=== PATIENT | female | born 1990 | race Caucasian/White ===

== ENCOUNTER 2025-01-04 15:23 | Emergency (ER) | payer MEDICAID, SELFPAY ==
[2025-01-04 15:24] VITALS: BP 153/108; PULSE 85; RESP 18; TEMP 36.8; O2SAT 99; BMI 47.9
--- NOTE | 2025-01-04 15:32 | ED.RN ---
PT WAS SEEN AT [facility] PAST FRIDAY FOR RIGHT EAR, GAVE EAR DROPS. NOW LEFT EAR HURTS WELL, PT SAID GETTING WORSE. PT TEARFUL IN EXAM ROOM.
--- NOTE | 2025-01-04 16:03 | EDS_ITS ---
HPI HPI - URI History of Present Illness Chief Complaint: Ear Problem Informant: patient Onset/Context/Timing Onset: Days Context: Gradual Onset Timing: Continuous Current Severity: Moderate Maximum Severity: Moderate Narrative Narrative: 34-year-old female has had bilateral ear pain for about 8 days. She saw the [facility] urgent care across the street they placed her on some type of eardrops she has been just getting worse. Now she has more pain and trouble hearing. Denies sore throat. Denies fever. She has had a prior polyp removed from one of her ears from a doctor in [place]. Prior similar symptoms: No Recent Illness/Hospitalization: No ROS ROS ED ROS Narrative Bilateral ear pain. Constitutional Constitutional ED: Denies chills or fever(s) Eyes Eyes: Denies blurry vision ENT ENT ED: Reports ear pain Cardiovascular Cardiovascular: Denies chest pain Respiratory/Chest Respiratory/Chest: Denies cough Gastrointestinal Gastrointestinal: Denies abdominal pain Genitourinary Genitourinary ED: Denies dysuria Musculoskeletal Musculoskeletal: Denies arthralgias Integumentary Denies abscess Neurologic Neurologic: Denies headache(s) Psychiatric Psychiatric: Denies anxiety Endocrine Endocrinology: Denies cold intolerance Hematologic/Lymphatic Hematologic/Lymphatic: Denies easy bleeding, easy bruising or lymphadenopathy Allergic/Immunologic Allergic/Immunologic ED: Denies mouth swelling, tongue swelling or urticaria PFSH [facility] Medical History Pre-diabetes Asthma FHx: cholecystectomy Home Medications ?Medication ?Instructions ?Recorded ?Last Taken ?Type albuterol 90 mcg/actuation aerosol mcg inhalation PRN 01/04/25 Unknown History inhaler amlodipine 10 mg tablet (Norvasc) 10 mg PO DAILY 01/0401/03/25 History amoxicillin 500 mg capsule 500 mg PO TID 10 days #30 c aps 01/04/25 Unknown Rx budesonide-formoterol HFA 80 2 inh inhalation BID 02/21 Unknown History mcg-4.5 mcg/actuation aerosol inhaler (Breyna) dupilumab 300 mg/2 mL subcutaneous 300 mg subcut QWEEK 01/04/25 12/28/24 History pen injector (Dupixent) montelukast 10 mg tablet 10 mg PO DAILY 01/04/25 Unkn own History (Singulair) Allergy/AdvReac Type Severity Reaction Status Date / Time cefdinir (From Omnicef) Allergy Severe HIVES Verified 01/04/25 15:32 sulfamethoxazole (From Allergy Severe HIVES Verified 01/04/25 15:32 Bactrim) trimethoprim (From Bactrim) Allergy Severe HIVES Verified 01/04/25 15:32 Surgical History H/O: hysterectomy Hx of tonsillectomy Social History Smoking Status: Former smoker EXAM Physical Exam Narrative Exam Narrative: Well-appearing 34-year-old female. Vital signs stable afebrile. H EENT exam pupils round react to light. Posterior pharynx normal. Ears both ear canals are swollen and red. They are open but there almost closed. The part of the different members I can see appear to be red with fluid behind them. The external ears unremarkable. There is no mastoid tenderness or lymphadenopathy. Neck nontender no lymphadenopathy. Lungs clear to auscultation. Heart regular rhythm no murmur rate about 85. Chest wall ribs nontender. Abdomen soft nontender. Moving all 4 extremities. Awake and alert. Answering questions following commands. Const Vital Signs: 01/04/25 15:24 Temperature 98.3 F Temperature Source Oral Pulse Rate 85 Respiratory Rate 18 Blood Pressure 153/108 H Blood Pressure Mean 123 Pulse Ox 99 Oxygen Delivery Method Room Air Positive well developed; Negative for cachectic or contractures General Appearance ED: well developed and NAD; Negative for cachectic, contractures, cyanotic, diaphoretic or pallor Nutritional Appearance: Negative for cachectic HEENT Reports moist mucous membranes HEENT Narrative: Bilateral otitis externa with red eardrums with fluid behind them. Ear brian were placed in both ears. Discharged to home on otic drops and amoxicillin 500 3 times daily for 10 days. Follow-up with ENT if not improving. normocephalic and atraumatic Throat: posterior oropharynx normal Eyes PERRL and EOMs intact bilaterally Neck no lymphadenopathy, supple, no meningeal signs and no JVD General: Negative for anterior neck swelling or lymphadenopathy Resp normal respiratory effort and clear to auscultation bilaterally Cardio S1 normal heart sound, S2 normal heart sound and no murmurs Rate: regular rate Rhythm: regular rhythm GI non-tender, non-distended and no masses Inspection: Negative for abdominal distention Auscultation: normoactive bowel sounds Palpation: soft; Negative for tender, guarding or mass Back/Spine no CVA tenderness and normal ROM Extremity normal to inspection and full ROM Neuro oriented x3 and CN's II-XII intact bilaterally Sensorium / Orientation: alert, oriented to person, oriented to place and oriented to time Motor Exam: strength 5/5 throughout Psych mental status grossly normal Attitude: No agitated Mood & Affect: Negative for depressed, anxious or tearful Skin General Skin Exam: Negative for jaundice or pallor Lesions: no lesions Rashes: no rashes MDM MDM MDM Narrative Medical decision making narrative: 34-year-old female with bilateral otitis externa and possibly otitis media also. May place an ear wick in both ears to help get the eardrops into her ears bilaterally. She may have placed on 4 drops to each ear 3 times a day. Follow- up with ENT. Return if worse. Motrin Tylenol for pain. History & Record Review Discussion w/independent historian: Patient and Family Discharge Plan Triage Chief Complaint: Ear Problem ED Provider: David Reina Dx/Rx/DC Orders Clinical Impression: Bilateral otitis externa Instructions: ED Otitis Media Adult, ED External Ear Infection (Adult) Prescriptions: New amoxicillin 500 mg capsule 500 mg PO TID 10 Days Qty: 30 0RF No Action albuterol 90 mcg/actuation aerosol inhalation PRN budesonide-formoterol [Breyna] 80-4.5 mcg/actuation HFA aerosol inhaler 2 inh inhalation BID Dupixent Pen 300 mg/2 mL pen injector 300 mg subcut QWEEK montelukast [Singulair] 10 mg tablet 10 mg PO DAILY amlodipine [Norvasc] 10 mg tablet 10 mg PO DAILY Primary Care Provider: Care Physician,No Primary Referrals: Brown Cunningham MD [Med Staff - Active Staff] - 3-5 Days if not improving Activity Restrictions/Additional Instructions: Leave earwax in for 1 week if they fall out early that is fine. Motrin and Tylenol for pain. Eardrops x 4 to each ear 3 times a day. Amoxicillin 1 pill 3 times a day till gone. Follow-up with the ear nose and throat doctors across the street Print Language: Turkmen Disposition Disposition: Home, Self Care
[2025-01-04] MEDS: AMOXICILLIN 500 MG CAPSULE PO (16:23)
[2025-01-04 16:31] VITALS: BP 132/78; PULSE 77; RESP 17; TEMP 36.9; O2SAT 99
[2025-01-04] MEDS: Neomycin/Polymyxin/Dexameth 5ML OPTH.BTL 4 DRP OTIC (17:15)
== END 2025-01-04 17:18 | disposition home or self-care (01) ==
PROVIDERS: Emergency Provider Emergency Medicine; Visit Provider Emergency Medicine
DX: H60.93 Unspecified otitis externa, bilateral (principal); Z87.891 Personal history of nicotine dependence; Z90.710 Acquired absence of both cervix and uterus
CPT/HCPCS: 99282

== ENCOUNTER 2025-01-21 09:49 | Emergency (ER) | payer MEDICAID, SELFPAY ==
[2025-01-21 09:49] VITALS: BP 148/82; PULSE 78; RESP 15; TEMP 36.7; O2SAT 98; BMI 52.7
--- NOTE | 2025-01-21 10:31 | EX.ED.VIS.UR ---
HPI HPI - URI History of Present Illness Chief Complaint: Ear Problem Informant: patient Narrative Narrative: 34-year-old female presenting with right ear pain, she was diagnosed with otitis externa at urgent care and prescribed drops that did not help, she is not sure what they were, and she was seen here couple weeks ago and prescribed amoxicillin and different antibiotic drop, as it had gone to both ears at that point. She states this all seemed to help but it did not completely go away and now the right is getting worse again. This has been all been going on for about a total of a month and a half. She followed up with ENT and at that time things were improving and they did not do anything different and she has another appointment on Friday but feels like she cannot wait until then. She denies any systemic symptoms except that she had a yeast infection when she was on the amoxicillin. She states she is not a diabetic. She has had some occasional mild headache but she denies any major headaches or vision changes fevers or chills, she does have a little bit of periauricular pain, but all of the symptoms right now are on the right. This includes a little bit of trouble hearing but she can hear out of it. She is having discharge. This was all initially started by swimming but she has not been swimming at all since all of this started. ROS ROS ED Constitutional Constitutional ED: Denies chills or fever(s) Eyes Eyes: Denies blurry vision or change in vision ENT ENT ED: Reports as per HPI, abnormal hearing, ear discharge and ear pain right; Denies rhinorrhea or sore throat Cardiovascular Cardiovascular: Denies chest pain Respiratory/Chest Respiratory/Chest: Denies dyspnea Gastrointestinal Gastrointestinal: Denies nausea or vomiting Musculoskeletal Musculoskeletal: Denies back pain or neck pain Integumentary Denies rash Neurologic Neurologic: Reports headache(s); Denies paresthesias or weakness [facility] Medical History Pre-diabetes Asthma FHx: cholecystectomy Home Medications Medication Instructions Recorded Last Taken Type albuterol 90 mcg/actuation aerosol mcg inhalation PRN 01/04/25 Unknown History inhaler amlodipine 10 mg tablet (Norvasc) 10 mg PO DAILY 01/04/25 01/03/25 History amoxicillin 500 mg capsule 500 mg PO TID 10 days #30 caps 01/04/25 Unknown Rx budesonide-formoterol HFA 80 2 inh inhalation BID 01/04/25 Unknown History mcg-4.5 mcg/actuation aerosol inhaler (Breyna) dupilumab 300 mg/2 mL subcutaneous 300 mg subcut QWEEK 01/04/25 12/28/24 History pen injector (Dupixent) montelukast 10 mg tablet 10 mg PO DAILY 01/04/25 Unknown History (Singulair) [id number]-[id number]-[id number] 3.5 4 drp EACH EAR Q8H 7 days #10 mL 01/04/25 Unknown Rx mg-10,000 unit/mL-1 % ear drops,susp ciprofloxacin 0.3 %-dexamethasone 4 drp RIGHT EAR BID 7 days #7.5 mL 01/21/25 Unknown Rx 0.1 % ear drops,suspension ciprofloxacin HCl 500 mg tablet 500 mg PO BID #14 TABLETS 01/21/25 Unknown Rx fluconazole 150 mg tablet 150 mg PO DAILY 1 dose #1 TAB 01/21/25 Unknown Rx Allergy/AdvReac Type Severity Reaction Status Date / Time cefdinir (From Omnicef) Allergy Severe HIVES Verified 01/21/25 09:53 sulfamethoxazole (From Allergy Severe HIVES Verified 01/21/25 09:53 Bactrim) trimethoprim (From Bactrim) Allergy Severe HIVES Verified 01/21/25 09:53 Surgical History H/O: hysterectomy Hx of tonsillectomy Social History current occupational status: employed Smoking Status: Former smoker EXAM Physical Exam Const Vital Signs: 01/21/25 09:49 Temperature 98.1 F Temperature Source Oral Pulse Rate 78 Respiratory Rate 15 Blood Pressure 148/82 H Blood Pressure Mean 104 Pulse Ox 98 Oxygen Delivery Method Room Air Positive well nourished, well developed and obese General Appearance ED: well developed and NAD Nutritional Appearance: obese HEENT HEENT Narrative: There is discomfort with manipulating the right pinna and tragus, which are normal externally. The EAC is edematous but it is open I can see the TM which appears to be erythematous and with altered light reflex. There is discharge in the EAC which again is swollen and erythematous and tender on speculum exam. I do not see an abscess. She has some mild right periauricular tenderness but I do not feel enlarged lymph nodes, parotid, and the mastoid is normal-appearing and minimally tender. normocephalic Eyes PERRL and EOMs intact bilaterally Neck full ROM and supple Resp normal respiratory effort Extremity normal to inspection General Extremety ED: Negative for edema General Extremity: Negative for edema Neuro oriented x3, CN's II-XII intact bilaterally and no sensory deficits noted Sensorium / Orientation: awake and alert Motor Exam: strength 5/5 throughout Skin no rashes or lesions noted and no wounds MDM MDM MDM Narrative Medical decision making narrative: I reviewed the patient's prior ER visit. She had amoxicillin and some otic drops, she said this helped partially. Given the periauricular pain and the fact that this has been going on for a month and a half, I obtained a CT of the sella and ear in order to rule out signs of malignant otitis externa. There is partial opacification of the mastoid air cells, but no other abnormal areas except for soft tissue swelling around the EAC on the right. The left is normal as she is on exam. She is well-appearing normal vital signs. I discussed with otolaryngology Dr. Vega. He recommends covering for Pseudomonas placing the patient on ciprofloxacin orally and Ciprodex otic, and having the patient follow-up as scheduled. She is comfortable to plan of also prescribing her Diflucan to prevent candidiasis which she had before. History & Record Review Additional record(s) reviewed:: Prior ED visit Radiography Diagnostic Testing: Clinical Impression(s) from Imaging Studies CT Orbit Sella Inner 01/21/25 10:34 IMPRESSION: 1. Qualitative thickening of the soft tissues of the right external auditory canal. Consider otitis externa. Partial opacification of the mastoid air cells. Middle ear is unremarkable. Mastoiditis not excluded. 2. Unremarkable appearance of the external auditory canal, middle ear, inner ear and mastoid on the left. Reading Location: [id number] Management Discussion w/another healthcare provider: [facility] (Otolaryngology) Discharge Plan Triage Chief Complaint: Ear Problem ED Provider: Armani Swain Dx/Rx/DC Orders Clinical Impression: External otitis of right ear Instructions: ED External Ear Infection (Adult) Prescriptions: New ciprofloxacin HCl 500 mg tablet 500 mg PO BID Qty: 14 0RF fluconazole 150 mg tablet 150 mg PO DAILY Qty: 1 0RF Rx Instructions: administer on day 1 of therapy ciprofloxacin-dexamethasone 0.3-0.1 % drops,suspension 4 drp RIGHT EAR BID 7 Days Qty: 7.5 0RF No Action albuterol 90 mcg/actuation aerosol inhalation PRN budesonide-formoterol [Breyna] 80-4.5 mcg/actuation HFA aerosol inhaler 2 inh inhalation BID Dupixent Pen 300 mg/2 mL pen injector 300 mg subcut QWEEK montelukast [Singulair] 10 mg tablet 10 mg PO DAILY amlodipine [Norvasc] 10 mg tablet 10 mg PO DAILY amoxicillin 500 mg capsule 500 mg PO TID 10 Days Qty: 30 0RF [id number]-[id number]-DZ 3.5-10,000-1 mg/mL-unit/mL-% drops,suspension 4 drp EACH EAR Q8H 7 Days Qty: 10 1RF Primary Care Provider: Care Physician,No Primary Referrals: Travis Vega MD [Med Staff - Active Staff] - 01/24/25 (as scheduled) Print Language: Togolese Disposition Disposition: Home, Self Care
--- NOTE | 2025-01-21 10:34 | CT_ITS ---
PROCEDURE: ORB SELLA POST FOSSA EAR W/O 01/21/2025 REASON FOR EXAM: PERSISTENT RIGHT OTITIS EXTERNA/MEDIA TECHNIQUE: ORB SELLA POST FOSSA EAR W/O CONTRAST: None One or more dose reduction techniques were used (e.g., Automated exposure control, adjustment of the mA and/or kV according to patient size, use of iterative reconstruction technique). RADIATION DOSE SUMMARY: CTDlvol: 67 mGy DLP: 802 mGycm COMPARISON: None FINDINGS: Right: There is opacification of the right inferior and mid mastoid air cells. Relative sparing of the more superior airs cells and antrum. Middle ear cavity is clear. Tympanic membrane is intact. The ossicular chain is intact. Semicircular canals are unremarkable. The cochlea is unremarkable. The course of the 7th cranial nerve is unremarkable. Qualitatively there is some thickening of the soft tissues of the external auditory canal. This is slightly greater on the right than the left. Left: Mastoid air cells on the left are clear. Middle ear cavity is clear. Tympanic membrane is intact. The ossicular chain is intact. Semicircular canals are unremarkable. The cochlea is unremarkable. The course of the 7th cranial nerve is unremarkable. External auditory canal is unremarkable. No fracture is seen. Temporomandibular joints are unremarkable. Limited images of the brain are unremarkable. Minimal mucosal thickening inferiorly in the maxillary sinuses. Globes are intact. No intraconal or extraconal mass seen. CT/Orb Sella Post Fossa Ear w/o IMPRESSION: 1. Qualitative thickening of the soft tissues of the right external auditory c anal. Consider otitis externa. Partial opacification of the mastoid air cells. Middle ear is unremarkable. Mastoidit is not excluded. 2. Unremarkable appearance of the external auditory canal, middle ear, inner e ar and mastoid on the left. Reading Location: [id number]
--- NOTE | 2025-01-21 14:15 | CM.ED ---
Social Work Reason for visit: No PCP Patient confirmed that she does not currently have a PCP. [facility] provider list was given. No further needs at this time. Ashley Jefferson, MANAGER INVESTMENT, LICENSED GUIDE
== END 2025-01-21 13:16 | disposition home or self-care (01) ==
PROVIDERS: Emergency Provider Emergency Medicine; Visit Provider Emergency Medicine
DX: H60.91 Unspecified otitis externa, right ear (principal); Z87.891 Personal history of nicotine dependence; Z90.710 Acquired absence of both cervix and uterus
CPT/HCPCS: 70480; 99282

== ENCOUNTER 2025-05-23 09:52 | Emergency (ER) | payer MEDICAID, SELFPAY ==
[2025-05-23 09:53] VITALS: BP 165/67; PULSE 92; RESP 18; TEMP 37.1; O2SAT 98
--- NOTE | 2025-05-23 10:02 | US_ITS ---
PROCEDURE: TRANSVAGINAL NON- 05/23/2025 REASON FOR EXAM: LEFT PELVIC PAIN; S/P HYST Patient has had a hysterectomy. TECHNIQUE: Procedure Code: USTVAG Modality: US Procedure: TRANSVAGINAL NON- COMPARISON: None FINDINGS: Measurements: Uterus: Patient has had a hysterectomy. Right Ovary: 2.5 x 1.5 x 1.5 cm with a volume of 3 mL. Left Ovary: Not visualized. Left ovary not visualized due to patient body habitus and bowel gas in this location. No abnormal left adnexal masses are noted. Right ovary: Size, contour, and echogenicity are within normal limits. There is flow within the right ovary. Left ovary: Not visualized. Other: There is no free fluid in the cul-de-sac. US/Transvaginal Non- IMPRESSION: Evidence of previous hysterectomy. Left ovary not visualized. Normal appearance to the right ovary. No evidence of right ovarian torsion. Reading Location: [id number]
--- NOTE | 2025-05-23 10:05 | ED.VIS.GI ---
HPI HPI - GI History of Present Illness Chief Complaint: Abd Pain Informant: patient Narrative Narrative: Patient is a 34-year-old female presenting with severe, recurrent left pelvic pain. - Pain has been ongoing for 4 years, with episodes occurring monthly and lasting 3-4 weeks. - Describes pain as stabbing and unbearable for the first 2 weeks of each episode; pain is tender to touch. - Current episode began 3-4 days ago, with intense pain today. - Pain previously started about a week before her menstrual cycle and lasted for 3 weeks after; now occurs monthly despite hysterectomy in June, which left ovaries intact. Since pain continues to recur, advised to get it checked out when the pain is bad, and coming to the ER today. Sees [facility] gynecology group locally. - Denies fever, discharge, dysuria, or emesis. - Reports occasional nausea and more frequent diarrhea than usual. - Denies pain relief with bowel movements. - Has not taken any pain medication today. PFSH PFSH Medical History Pre-diabetes Asthma FHx: cholecystectomy Home Medications ?Medication ?Instructions ?Recorded ?Last Taken ?Type albuterol sulfate 90 mcg/actuation 2 puff inhalation Q6H PRN PRN 05/23/25 05/22/25 History aerosol inhaler wheezing budesonide-formoterol HFA 160 2 puff inhalation BID 05/23/25 05/22/25 History mcg-4.5 mcg/actuation aerosol inhaler (Symbicort) montelukast 10 mg tablet 10 mg PO QHS 05/23/25 05/09/25 History Allergy/AdvReac Type Severity Reaction Status Date / Time cefdinir (From Omnicef) Allergy Severe HIVES Verified 05/23/25 09:54 sulfamethoxazole (From Allergy Severe HIVES Verified 05/23/25 09:54 Bactrim) trimethoprim (From Bactrim) Allergy Severe HIVES Verified 05/23/25 09:54 Surgical History H/O: hysterectomy Hx of tonsillectomy Social History current occupational status: employed Smoking Status: Former smoker ROS ROS ED Constitutional Constitutional ED: Denies chills or fever(s) Eyes Eyes: Denies change in vision or diplopia ENT ENT ED: Denies rhinorrhea or sore throat Cardiovascular Cardiovascular: Denies chest pain or palpitations Respiratory/Chest Respiratory/Chest: Denies cough or dyspnea Gastrointestinal Gastrointestinal: Reports abdominal pain and nausea; Denies diarrhea or vomiting Genitourinary Genitourinary ED: Denies dysuria or hematuria Musculoskeletal Musculoskeletal: Denies back pain or neck pain Integumentary Denies abscess or rash Neurologic Neurologic: Denies headache(s), paresthesias or weakness Psychiatric Psychiatric: Denies anxiety or suicidal thoughts EXAM Physical Exam Const Vital Signs: 05/23/25 09:53 05/23/25 12:12 Temperature 98.7 F Temperature Source Oral Pulse Rate 92 55 L Respiratory Rate 18 16 Blood Pressure 165/67 H 129/84 H Blood Pressure Mean 99 99 Pulse Ox 98 100 Oxygen Delivery Method Room Air Room Air Positive well nourished, well developed and obese General Appearance ED: well developed and NAD Nutritional Appearance: obese HEENT Reports moist mucous membranes normocephalic and atraumatic Eyes PERRL and EOMs intact bilaterally Neck full ROM and supple Resp normal respiratory effort and clear to auscultation bilaterally Cardio regular rate, regular rhythm and no murmurs GI non-distended GI Narrative: Tender in the left lower quadrant distally toward the pelvis, more laterally in the left lower quadrant she is nontender and elsewhere throughout the abdomen nontender. No guarding or rebound. Auscultation: normoactive bowel sounds Palpation: soft Back/Spine no CVA tenderness General Back: other FROM Extremity normal to inspection General Extremety ED: Negative for edema, pulses abnormal or tenderness General Extremity: Negative for edema or pulses abnormal Neuro oriented x3, CN's II-XII intact bilaterally and no sensory deficits noted Sensorium / Orientation: awake and alert Motor Exam: strength 5/5 throughout Psych mental status grossly normal and thought process normal Skin no rashes or lesions noted and no wounds MDM MDM MDM Narrative Medical decision making narrative: Assessment: The patient is a 34-year-old female presenting for severe, cyclic left lower quadrant pelvic pain persisting 3?4 weeks each month despite prior hysterectomy with ovaries retained. Pain recurred four days ago, stabbing and tender to touch. Labs show WBC 11.0 without shift and UA with microscopic hematuria but no infection. Transvaginal pelvic ultrasound was negative for acute process yet non-diagnostic for the left ovary; therefore CT abdomen/pelvis with IV contrast was obtained and is completely normal. Given the cyclic pattern and location, ovarian pathology remains possible; ureterolithiasis considered given hematuria but less likely due to monthly timing and negative CT. GI causes are felt unlikely. Plan: - Administered IV Toradol for analgesia with good response. - Discharge home; instructed to follow up with outpatient gynecology for further evaluation of cyclic pelvic pain. - Patient comfortable with and agrees to the plan. Diagnostics: - Labs: WBC 11.0 K/?L without left shift; remainder unremarkable. - Urinalysis: microscopic hematuria, no evidence of infection. - Transvaginal pelvic ultrasound: no acute findings; left ovary not visualized?non-diagnostic. Independently interpreted by Armani nash. - CT abdomen/pelvis with IV contrast: completely normal/unremarkable. Independently interpreted by Armani nash. Reevaluations: - Patient improved after Toradol, pain manageable, agrees with outpatient follow-up. Lab Data Attestation: I reviewed the patient's lab results. Labs: Laboratory Results - last 24 hr 05/23/25 10:40 WBC 11.0 RBC 4.67 Hgb 13.6 Hct 41.0 MCV 87.8 MCH 29.1 MCHC 33.2 RDW Std Deviation 41.1 RDW Coeff of Natalie 12.8 Plt Count 427 MPV 8.8 Immature Gran % (Auto) 0.400 Neut % (Auto) 57.2 Lymph % (Auto) 28.5 Bradley % (Auto) 7.3 Eos % (Auto) 5.6 H Baso % (Auto) 1.0 Absolute Neuts (auto) 6.3 Absolute Lymphs (auto) 3.12 Nucleated RBC % 0 Sodium 138 Potassium 3.8 Chloride 102 Carbon Dioxide 25.4 Anion Gap 10 BUN 10 Creatinine 0.71 Estim Creat Clear Calc 161.62 Est GFR (MDRD) Non-Af 115 BUN/Creatinine Ratio 14.3 Glucose 91 Calcium 9.2 Urine Color Yellow Urine Clarity Clear Urine pH 6.5 Ur Specific [place] 1.015 Urine Protein Negative Urine Glucose (UA) Normal Urine Ketones Negative Urine Occult Blood 50 H Urine Nitrite Negative Urine Bilirubin Negative Urine Urobilinogen Normal Ur Leukocyte Esterase Negative Urine RBC 0-5 SEEN Urine WBC 0 SEEN Ur Squamous Epith Cells 5-10 SEEN Urine Bacteria 0 SEEN Urine Mucus 0 SEEN Radiography Diagnostic Testing: Clinical Impression(s) from Imaging Studies Transvaginal US 05/23/25 10:02 IMPRESSION: Evidence of previous hysterectomy. Left ovary not visualized. Normal appearance to the right ovary. No evidence of right ovarian torsion. Reading Location: [facility] Abdomen/Pelvis CT 05/23/25 12:09 IMPRESSION: No acute abdominopelvic abnormalities. Reading Location: [facility] Discharge Plan Triage Chief Complaint: Abd Pain ED Provider: Armani Swain Dx/Rx/DC Orders Clinical Impression: Acute pelvic pain, female, Abdominal pain, LLQ Instructions: Abdominal Pain, ED Pelvic Pain, Unknown Cause Prescriptions: No Action montelukast 10 mg tablet 10 mg PO QHS albuterol sulfate 90 mcg/actuation HFA aerosol inhaler 2 puff inhalation Q6H PRN PRN (Reason: wheezing) budesonide-formoterol [Symbicort] 160-4.5 mcg/actuation HFA aerosol inhaler 2 puff INHALATION BID Primary Care Provider: Care Physician,No Primary Referrals: Keisha Stover CNM [Med Staff - Adv Practice Prof, Obstetrics] Print Language: Kiswahili Disposition Disposition: Home, Self Care
[2025-05-23 10:17] VITALS: BMI 55.7
[2025-05-23] MEDS: Ketorolac 30 MG/ML Syringe IV (10:36)
[2025-05-23 10:46] LABS: Mucous, Urine 0 SEEN /hpf (<or=2+)
[2025-05-23 10:48] LABS: Color, Urine Yellow (Yellow); Glucose, Dipstick Normal (Normal); Ketone-Dipstick Negative (Negative); Leukocyte Esterase-Dipstick Negative /ul (Negative); Nitrite-Dipstick Negative (Negative); Occult Blood-Urine 50 /ul (Negative); Protein-Dipstick Negative (Negative); Specific Gravity, Urine 1.015 (1.002-1.030); Urine Bilirubin Dipstick Negative (Negative)
[2025-05-23 10:50] LABS: Hematocrit 41.0 % (37-47); Hemoglobin 13.6 g/dL (12.0-15.0); Immature Granulocytes Count 0.040 X10^3/uL (0.0-0.0); Mean Corp Hgb Conc 33.2 g/dL (32-36); Mean Corpuscular Volume 87.8 fL (81-99); Mean Platelet Vol. 8.8 fl (6.2-12.0); NRBC Flagged by Analyzer 0 % (0-5); Platelet Count 427 K/mm3 (150-450); RBC Distribution Width CV 12.8 % (11.6-14.6); RBC Distribution Width SD 41.1 fl (35.1-43.9); Red Blood Count 4.67 M/mm3 (4.2-5.4); White Blood Count 11.0 K/mm3 (4.4-11.0)
[2025-05-23 10:55] LABS: Red Blood Cells-Urine 0-5 SEEN /hpf (0-5); Squamous Epithelial Cells - UA 5-10 SEEN /hpf (5-10)
[2025-05-23 11:24] LABS: Anion Gap 10 (5-15); BUN 10 mg/dL (4-19); BUN/Creat Ratio 14.3 RATIO (10-20); Calcium,Total 9.2 mg/dL (7.6-11.0); Carbon Dioxide 25.4 mmol/L (21.0-32.0); Chloride 102 mmol/L (98-108); Estimated Creatinine Clearance 161.62 ml/min (50-250); Glucose 91 mg/dL (70-99); Potassium 3.8 mmol/L (3.3-5.1)
--- NOTE | 2025-05-23 11:31 | CM.ED ---
Social work Reason for referral: no PCP Referral source: case find SW entered patient's room, introducing self and role at [facility]. Patient accepted SW visit and confirmed lack of PCP. Patient accepted resources of [facility] PCPs and Pinky Dailey information. Patient denied further needs at this time. Ute Ball, [employer], C.O.D. CLERK
--- NOTE | 2025-05-23 12:09 | CT_ITS ---
PROCEDURE: ABDOMEN/PELVIS W IV CONT ONLY 05/23/2025 REASON FOR EXAM: LLQ PAIN TECHNIQUE: Procedure Code: [id number] Modality: CT Procedure: ABDOMEN/PELVIS W IV CONT ONLY Coronal and Sagittal reconstruction series were provided. CONTRAST: Isovue 370 VOLUME: 75 mL One or more dose reduction techniques were used (e.g., Automated exposure control, adjustment of the mA and/or kV according to patient size, use of iterative reconstruction technique. RADIATION DOSE SUMMARY: CTDlvol: 24.18 mGy DLP: 1281.21 mGycm COMPARISON: Unremarkable. FINDINGS: Lung bases: Clear. Liver: Unremarkable. Gallbladder: Cholecystectomy. No biliary dilation. Spleen: Unremarkable. Pancreas: Unremarkable. Adrenals: Unremarkable. Kidneys: Unremarkable. Bladder: Decompressed which limits the evaluation. Reproductive Organs: Unremarkable. Bowel: Colonic diverticulosis with no evidence of acute diverticulitis. Appendix: Unremarkable. Lymph nodes: No lymphadenopathy. Vasculature: No aneurysm. Peritoneum / Retroperitoneum: No free air or free fluid. Bones: No acute bony abnormalities. CT/Abdomen/Pelvis W IV Cont ONLY IMPRESSION: No acute abdominopelvic abnormalities. Reading Location: [id number]
[2025-05-23 12:12] VITALS: BP 129/84; PULSE 55; RESP 16; O2SAT 100
[2025-05-23 14:08] VITALS: BP 131/92; PULSE 86; RESP 17; TEMP 36.6; O2SAT 98
== END 2025-05-23 14:18 | disposition home or self-care (01) ==
PROVIDERS: Emergency Provider Emergency Medicine; Visit Provider Emergency Medicine
DX: R10.22 Pelvic and perineal pain left side (principal); R10.32 Left lower quadrant pain; Z87.891 Personal history of nicotine dependence; J45.909 Unspecified asthma, uncomplicated; E66.9 Obesity, unspecified
CPT/HCPCS: 74177; 76830; 80048; 81001; 85025; 96374; 96375; 99283; Q9967; A4216; J2405